=== PATIENT | male | born 2000 | race African-American/Black ===

== ENCOUNTER 2023-05-24 13:18 | Emergency (ER) | payer SELFPAY ==
[~2023-05-24] VITALS: Ht 188 cm; Wt 100.0 kg
[~2023-05-24 13:18] MED LIST: PREDNISONE20 MG PO
[2023-05-24 13:25] VITALS: BP 126/77; TEMP 99.5
[2023-05-24] MEDS ORDERED: AMOXICILLIN 50500 MG PO (14:13)
[2023-05-24] MEDS ORDERED: dexAMETHasone 10 MG/ML VIAL PO ONE (14:15)
[2023-05-24] MEDS ORDERED: Amoxicillin 500 MG CAP PO ONE (14:15)
[2023-05-24 14:40] VITALS: PULSE 82
== END 2023-05-24 14:41 | disposition home or self-care (01) ==
LOC: COL.ER 13:18
DX: J03.90 Acute tonsillitis, unspecified (principal)
CPT/HCPCS: J1100

== ENCOUNTER 2024-01-11 15:42 | Emergency (ER) | payer SELFPAY ==
[~2024-01-11] VITALS: Ht 188 cm; Wt 97.7 kg
[~2024-01-11 15:42] MED LIST changes: +AMOXICILLIN 50500 MG PO
[2024-01-11 16:04] VITALS: BP 149/83; TEMP 98.5
[2024-01-11 19:14] LABS: STREP A POSITIVE
[2024-01-11] MEDS ORDERED: Penicillin G Benz 1,200,000 UNITS/2 ML SYRINGE IM ONE (19:30)
[2024-01-11 19:49] VITALS: PULSE 64
== END 2024-01-11 19:48 | disposition home or self-care (01) ==
LOC: COL.ER 15:42
PROVIDERS: Nurse Practitioner Primary Care
DX: J02.0 Streptococcal pharyngitis (principal)
CPT/HCPCS: J0561